=== PATIENT | male | born 1950 | race Caucasian/White ===

== ENCOUNTER → 2018-07-10 12:54 | Outpatient (BNVA) | payer MEDICARE, BC, SELFPAY | PROVIDERS: PCP Internal Medicine; Visit Provider Nurse Practitioner Gerontology | DX: N40.1 Benign prostatic hyperplasia with lower urinary tract symptoms (principal); R33.9 Retention of urine, unspecified | CPT/HCPCS: 51798; 81003; 99204 ==

== ENCOUNTER → 2018-07-31 08:27 | Outpatient (BNVA) | payer MEDICARE, BC, SELFPAY | PROVIDERS: PCP Internal Medicine; Visit Provider Nurse Practitioner Gerontology | DX: R35.0 Frequency of micturition (principal) | CPT/HCPCS: 51798; 99213 ==

== ENCOUNTER → 2019-07-28 08:32 | Outpatient (BNVA) | payer MEDICARE, BC, SELFPAY | PROVIDERS: PCP Internal Medicine; Visit Provider Nurse Practitioner Gerontology | DX: N40.1 Benign prostatic hyperplasia with lower urinary tract symptoms (principal); R35.1 Nocturia | CPT/HCPCS: 99214 ==

== ENCOUNTER 2019-07-31 02:27 | Outpatient (CLI) | payer MEDICARE, BC, SELFPAY ==
[2019-08-03 10:53] LABS: PSA, Screening 0.4 ng/mL (0.0-6.5)
== END 2019-07-31 02:47 ==
PROVIDERS: PCP Internal Medicine; Visit Provider Nurse Practitioner Gerontology
DX: R33.9 Retention of urine, unspecified (principal); R35.1 Nocturia; N40.1 Benign prostatic hyperplasia with lower urinary tract symptoms; Z12.5 Encounter for screening for malignant neoplasm of prostate
CPT/HCPCS: 36415; 84153

== ENCOUNTER → 2019-08-04 11:58 | Outpatient (BNVA) | payer MEDICARE, BC, SELFPAY | PROVIDERS: PCP Internal Medicine; Referring Provider Internal Medicine; Visit Provider Nurse Practitioner Gerontology | DX: N40.1 Benign prostatic hyperplasia with lower urinary tract symptoms (principal); R35.1 Nocturia | CPT/HCPCS: 99213 ==

== ENCOUNTER → 2019-11-02 09:56 | Outpatient (BNVA) | payer MEDICARE, BC, SELFPAY | PROVIDERS: PCP Internal Medicine; Referring Provider Internal Medicine; Visit Provider Nurse Practitioner Gerontology | DX: N40.1 Benign prostatic hyperplasia with lower urinary tract symptoms (principal); R35.1 Nocturia | CPT/HCPCS: 99213 ==

== ENCOUNTER → 2020-01-27 08:52 | Outpatient (BNVA) | payer MEDICARE, BC, SELFPAY | PROVIDERS: PCP Internal Medicine; Visit Provider Nurse Practitioner Gerontology | DX: R69 Illness, unspecified (principal) ==

== ENCOUNTER 2020-01-27 13:17 | Outpatient (CLI) | payer MEDICARE, BC, SELFPAY ==
--- NOTE | 2020-01-27 10:15 | DI.US_ITS ---
EXAM: US RENAL CLINICAL HISTORY: retention of urine, R33.9. TECHNIQUE: Trent scale, color and spectral Doppler were used. COMPARISON: No exams were available for comparison FINDINGS: Renal size in cm: Right: 10.7. Left: 11.4. Echogenicity: Normal. Hydronephrosis: No. Cyst or mass: No. Nephrolithiasis: No. Other findings: None. Bladder:Mild bladder wall trabeculation. Ureteral jets: Right: Visualized and unremarkable. Left: Visualized and unremarkable. Prevoid vol:358 cc Postvoid vol:320 cc Prostate: 60 cc. Prostate gland appears enlarged and impinges upon the base of the urinary bladder. Renal color flow: Symmetric and within normal limits. IMPRESSION: 1. Enlarged prostate gland impinging upon the base of the urinary bladder. 2. Large postvoid urinary bladder residual. Mild bladder wall trabeculation. This may be due to chr onic bladder outlet obstruction. DATA REPOSITORY:
== END 2020-01-27 13:37 ==
PROVIDERS: PCP Internal Medicine; Visit Provider Nurse Practitioner Gerontology
DX: N40.1 Benign prostatic hyperplasia with lower urinary tract symptoms (principal); R33.8 Other retention of urine; R35.1 Nocturia
CPT/HCPCS: 76770; 99213

== ENCOUNTER → 2020-02-17 09:25 | Outpatient (BNVA) | payer MEDICARE, BC, SELFPAY | PROVIDERS: PCP Internal Medicine; Referring Provider Internal Medicine; Visit Provider Nurse Practitioner Gerontology | DX: N40.1 Benign prostatic hyperplasia with lower urinary tract symptoms (principal); R35.1 Nocturia; R33.8 Other retention of urine | CPT/HCPCS: 99213 ==

== ENCOUNTER → 2020-03-14 10:27 | Outpatient (BNVA) | payer MEDICARE, BC, SELFPAY | PROVIDERS: PCP Internal Medicine; Referring Provider Internal Medicine; Visit Provider Nurse Practitioner Gerontology | DX: R33.8 Other retention of urine (principal); F41.1 Generalized anxiety disorder | CPT/HCPCS: 99212; 99442 ==

== ENCOUNTER 2020-03-17 11:01 | Outpatient (CLI) | payer MEDICARE, BC, SELFPAY ==
[2020-03-19 13:55] LABS: COVID-19 RT-PCR UVMMC Result Negative (Negative)
== END 2020-03-17 11:21 ==
PROVIDERS: Nurse Practitioner Gerontology; PCP Internal Medicine; Visit Provider Urology
DX: Z11.59 Encounter for screening for other viral diseases (principal); Z01.818 Encounter for other preprocedural examination
CPT/HCPCS: U0003

== ENCOUNTER 2020-03-21 10:18 | Inpatient (IN) | payer MEDICARE, BC, SELFPAY ==
[2020-03-21] VITALS (17 sets, daily range): BP systolic 85–132; BP diastolic 53–80; PULSE 43–59; RESP 8–20; TEMP 35.4–37; O2SAT 97–100
--- NOTE | 2020-03-21 07:05 | W.PM.HP.N ---
Assessment and Plan Assessment and plan (1) Lower urinary tract symptoms (LUTS): Status: Chronic Assessment and plan: We will move forward with cystoscopy and TURP (2) Retention of urine: Status: Acute History of Present Illness History of Present Illness Chief Complaint: BPH with LUTS Narrative: Omid is a 69-year-old male that is being seen in the urology clinic due to bladder outlet obstruction. He has been treated for BPH with his LUTS and is currently on max therapy of tamsulosin 0.8 mg daily and Proscar 5 mg daily. He was last seen a few weeks ago and was determined to have a elevated PVR even with max therapy. He notes that his symptoms were not utterly bothersome, but his PVR was over 300 cc. No hydronephrosis was noted on the renal ultrasound. After discussing multiple treatment options, he has decided to move forward with a TURP. Review of Systems Narrative: No fevers or chills No vision change or dysphasia No diabetes or thyroid No shortness of breath, cough or hemoptysis No chest pain or palpitations No nausea, vomiting, hepatitis, ulcers, jaundice, diarrhea or constipation No seizures, strokes or peripheral neuropathy No bleeding disorders or anemia No gout PFSH Surgical History Varicocele Ligation Family History Mother Essential hypertension Social History (Updated 07/29/18 @ 08:49 by Mel Bryant LPN) Smoking/Tobacco Use Status: Former Tobacco Use Smoking risk assessment performed?: Yes Alcohol Intake: current Alcohol Intake frequency: 0-2 drinks per day Drug use: Never Household members: spouse Housing: house Number of Children: 1 number of grandchildren: 2 Education Level: other Details: Retired Retail Brand Ambassador, Clamp Forklift Operator Do you need help understanding health information?: Never Current gender identity: male What is your relationship status?: Panel score (0-1 are the most socially isolated patients): 1 What type of physical activity do you participate in: regular exercise Duration: 15-30 minutes/day Frequency: 3-4 times per week Seatbelt use: always Drive intox or ride w/intox tower truck driver: No Working smoke detector in home: Yes Fire extinguisher in home: Yes Carbon monox detector in home: Yes Do you feel safe at home: Yes Do you feel safe in your relationship?: Yes Meds Home Medications and Allergies Home Medications Medication Instructions Recorded Confirmed Type tamsulosin 0.4 mg capsule 0.8 mg PO DAILY #180 cap 04/23/19 03/21/20 Rx finasteride 5 mg tablet 5 mg PO DAILY #90 tab 08/04/19 03/21/20 Rx Allergies Allergy/AdvReac Type Severity Reaction Status Date / Time Penicillins Allergy Unknown Verified 03/21/20 06:48 Sulfa (Sulfonamide Allergy Unknown Verified 03/21/20 06:48 Antibiotics) Exam Const General: cooperative, comfortable, no acute distress and well developed Neck Neck: supple Resp Effort & Inspection: normal respiratory effort Auscultation: clear to auscultation bilaterally Cardio Rate: regular rate Rhythm: regular rhythm GI Palpation: soft and no masses Neuro General: patient alert, patient awake and patient oriented x3 Results Last Vital Signs Temp 36.5 C 03/21/20 06:39 Pulse 57 L 03/21/20 06:39 Resp 18 03/21/20 06:39 BP 122/80 03/21/20 06:39 Pulse Ox 97 03/21/20 06:39 COVID-19 Screening Have you, or household traveled for leisure in last 14 days?: No Had IN PERSON contact w/suspected or confirmed C-19 person: No
[2020-03-21] MEDS: Lactated Ringers 1,000 ML 80 ML IV ×3 (07:09→22:42)
[2020-03-21] MEDS: CIPROFLOXACIN 400 MG/200 ML BAG 200 MG IVPB (08:21)
[2020-03-21] MEDS: Lidocaine 2% Jelly 6 ML SYR (09:12)
--- NOTE | 2020-03-21 10:10 | PROST_PTH ---
PATIENT: Omdi Roy LOC: U#:[id number] AGE/SX: 69/M ROOM: 210 RE03/21/[address]: Manpreet Chapa MD : [id number] BED: A DIS: 03/22/2020 SPEC #: [id number] RECD: 03/21/20 12:45 STATUS: MANOJ REQ #: [id number] SARAH: 03/21/20 10:[address]: Manpreet Chapa DEPT: Surgical Specimen RECD BY: Shakira Magallanes ENTERED: 03/21/20 12:46 SP TYPE: PROST OTHR DR: Becca Wild MD Tissues: 1 - PROSTATE CURRETTINGS Procedures: GROSS AND MICRO LEVEL 4 Comments: [id number]
--- NOTE | 2020-03-21 10:56 | ROE_ITS ---
Date of service: 03/21/20 Time of Service: 10:56 Operative Note Operative Note DATE OF PROCEDURE: 03/21/20 PRE-OP DIAGNOSIS: BPH with LUTS POST-OP DIAGNOSIS: same PROCEDURE: Cystoscopy, TURP SURGEON: Manpreet Chapa ANESTHESIA: spinal ESTIMATED BLOOD LOSS: 200 PATHOLOGY: other (prostate chips) COMPLICATIONS: None Patient was transported to: PACU Patient's condition: stable Implants: 24 Frisian Hematuria catheter with 30 cc of sterile water in balloon Indications: This is a 69-year-old gentleman who has a history of lower urinary tract symptoms. He has failed maximal medical therapy and presents for transurethral resection of prostate Findings: Diffusely enlarged prostate Trabeculated bladder Procedure Description: The patient was brought to the operating room on 03/21/2020. After successful induction of spinal anesthesia, he was positioned in the dorsal lithotomy position. He was given a dose of preoperative IV antibiotics. 2% Xylocaine jelly was instilled into the urethra to act as a local anesthetic. A 24 Frisian resectoscope sheath was passed through the urethra into the bladder. Urethra and bladder were inspected with the 30 degree lens and visual obturator. The pendulous, bulbous and membranous urethra all appeared normal with no strictures. The prostatic urethra showed lateral lobe enlargement but no significant median lobe. Bladder neck was entered and the bladder mucosa was inspected. Both ureteral orifices appeared normal with no blood seen coming from either side. The bladder was moderately trabeculated with a few small diverticuli and cellules present. No papillary or nodular tumors were seen. We then used the [employer] resectoscope to perform transurethral resection of the prostate from the bladder neck out to the verumontanum. We used bipolar cautery and resected down to the level of the prostatic capsule. We then switched over to the plasma button and vaporized the prostate tissue the remainder of the way. All resected tissue was evacuated and sent to pathology for permanent section. Once hemostasis had been obtained, the bladder was filled with irrigant and the resectoscope was removed. We then passed a 24 Frisian hematuria catheter through the urethra into the bladder. The catheter balloon was inflated with 30 cc of sterile water. Continuous bladder irrigation with saline was begun. Traction was placed on the catheter until the irrigant became clear. A belladonna and opium suppository was inserted into the patient's rectum. He was transferred to the recovery room in stable condition.
[2020-03-21] MEDS: Normal Saline Flush 10 ML SYR IV (11:55)
[2020-03-21] MEDS: MacroBID 100 MG CAP PO (19:46)
[2020-03-21] MEDS: Docusate Sodium 100 MG CAP PO (19:46)
[2020-03-22 06:58] LABS: HCT 39.2 % (40.0-50.0); MCH 31.6 pg (27.0-33.0); MCHC 33.2 % (32.0-36.0); MCV 95.4 fL (80-95); MPV 10.5 fL (8.0-11.0); Platelet Count 168 10^3/uL (130-400); RBC 4.11 10^6/uL (4.36-5.78); RDW-SD 45.6 fL; WBC 8.11 10^3/uL (4.4-10.8)
[2020-03-22 07:03] LABS: Anion Gap 2.3 mmol/L (3-11); BUN 12 mg/dL (7-18); CO2 30.7 mmol/L (21.0-32.0); CREATININE 1.01 mg/dL (0.70-1.30); Calcium 8.4 mg/dL (8.5-10.1); Chloride 105 mmol/L (98-107); Glucose 93 mg/dL (74-106); Potassium 4.5 mmol/L (3.5-5.1); Sodium 138 mmol/L (136-145)
[2020-03-22 07:21] VITALS: BP 109/57; PULSE 49; RESP 19; TEMP 36.7; O2SAT 97
--- NOTE | 2020-03-22 07:25 | W.PM.PROGNOT ---
Date of Service Date of service: 03/22/20 Time of Service: 07:25 Assessment and Plan Assessment and plan (1) Retention of urine: Status: Acute Assessment and plan: We will discontinue both the IV fluid and the continuous bladder irrigation. Once we see his lab work from this morning and see how he does without the bladder irrigation, we will make a decision regarding discharge later this morning. Subjective Subjective Interval history since last seen: He has had some spasms, but no clot retention. He is tolerating oral nutrition. He has no fevers or chills. Exam Narrative Exam Narrative: He does not appear septic or toxic His vital signs are documented elsewhere His urine is clear with continuous bladder irrigation His labs are pending from this morning Objective Last Vital Signs Temp 36.7 C 03/22/20 07:21 Pulse 49 L 03/22/20 07:21 Resp 19 03/22/20 07:21 BP 109/57 L 03/22/20 07:21 Pulse Ox 97 03/22/20 07:21 Laboratory Results - last 24 hr 03/22/20 03/22/20 06:36 06:36 WBC 8.11 RBC 4.11 L Hgb 13.0 L Hct 39.2 L MCV 95.4 H MCH 31.6 MCHC 33.2 RDW 13.0 Plt Count 168 MPV 10.5 Sodium 138 Potassium 4.5 Chloride 105 Carbon Dioxide 30.7 Anion Gap 2.3 L BUN 12 Creatinine 1.01 Estimated GFR/1.73 m2 >= 60.00 Glucose 93 Calcium 8.4 L
--- NOTE | 2020-03-22 08:25 | INITIAL_ITS ---
- If Service Date Differs Date of service: 03/22/20 Time of Service: 08:25 Care Management Initial Assess REASON FOR HOSPITALIZATION:: BPH PAST MEDICAL HISTORY/PAST SURGICAL HISTORY:: Past medical History: none documented. Surgical History . Varicocele Ligation PREVIOUS FUNCTIONAL STATUS/SOCIAL/FAMILY SUPPORTS:: Omid lives in [place] with his Mary. CURRENT FUNCTIONAL STATUS:: Omid was walking out the door to be discharged when CM came to see him. he stated that he was doing well and did not need any services at home. ADVANCE DIRECTIVES:: none on file CODE STATUS:: Full Code INSURANCE COVERAGE / FINANCIAL ISSUES:: Medicare. BC BS CURRENT HOME/COMMUNITY SERVICES/EQUIPMENT:: none PRIMARY CARE PHYSICIAN:: Becca Wild POTENTIAL DISCHARGE NEEDS:: Followup with PCP and surgeon and plan of care PATIENT/FAMILY EDUCATION NEEDS:: Discharge plan, limitationbs, follow up plan, medications, Ask Me Three PLAN:: Omid will be discharged home with no new services and follow up with Dr. Chapa and his prescribed plan of care.
[2020-03-22] MEDS: Ketorolac 15 MG/ML VIAL IVP (08:32)
[2020-03-22] MEDS: Normal Saline Flush 10 ML SYR IV (08:33)
[2020-03-22] MEDS: Finasteride 5 MG TAB PO (08:34)
[2020-03-22] MEDS: Docusate Sodium 100 MG CAP PO (08:34)
[2020-03-22] MEDS: Tamsulosin 0.4 MG CAPCR 0.8 MG PO (08:34)
[2020-03-22] MEDS: MacroBID 100 MG CAP PO (08:34)
--- NOTE | 2020-03-22 08:54 | W.PM.DS.N ---
Date of service: 03/22/20 Time of Service: 08:55 DS: Diagnosis Discharge Diagnosis (1) Retention of urine: Status: Acute Discharge Plan Disposition Patient Disposition: HOME Condition: Stable Discharge Details Reason For Visit: BPH WITH LUTS Admit Date/Time: 03/21/20 10:18 Admit Provider: Manpreet Chapa Attending Provider: Manpreet Chapa Primary Care Provider: Becca Wild Hospital Course Hospital Course: The patient was admitted and taken to the operating room on 03/21/2020 where he underwent transurethral resection of the prostate. The surgery itself was uneventful. Postoperatively, he was brought up to the medical surgical unit and maintained on continuous bladder irrigation overnight. By postoperative day #1, his irrigation was clear. He was tolerating oral nutrition and medications. His lab work was stable. He was deemed to be ready for discharge. Home Meds and New Rx's Prescriptions: New ketorolac 10 mg tablet 10 mg PO TID PRN (Reason: pain) 5 Days Qty: 15 RF: 0 nitrofurantoin monohyd/m-cryst [Macrobid] 100 mg capsule 100 mg PO Q12H 3 Days Qty: 6 RF: 0 No Action finasteride [Proscar] 5 mg tablet 5 mg PO DAILY Qty: 90 RF: 3 tamsulosin [Flomax] 0.4 mg capsule 0.8 mg PO DAILY Qty: 180 RF: 3 Discharge Instructions Additional Instructions: Continue both the finasteride and tamsulosin until your next follow-up visit Follow-up with nurse in 2 to 3 days for catheter removal In the meantime, the catheter to leg bag during the day and a larger drainage bag at night May plug catheter to take shower No lifting over 10 pounds or exercising until follow-up visit Follow-up visit with me in 1 to 2 weeks Activity:: No lifting over 10 pounds Equipment/Supplies:: Pavon to drainage Diet:: As Tolerated Discharge Orders Discharge Orders: Discharge Order (Routine); Ordered 03/22/20 Ordered By: Manpreet Chapa DS: Summary Status at Discharge Functional status at discharge: independent ambulation Overall status at discharge: patient is back to baseline Mental Status: mental status grossly normal Speech and Movement: speech and movement normal Mood: congruent mood Affect: normal affect Exam Psych Mental Status: mental status grossly normal Speech and Movement: speech and movement normal Mood: congruent mood Affect: normal affect DS: Data Vitals/I&O Vitals and I&O: Vital Signs Temperature 36.7 C 03/22/20 07:21 Temperature Source Tympanic 03/22/20 07:21 Pulse 49 L 03/22/20 07:21 Pulse Rhythm Regular 03/22/20 04:20 Respiratory Rate 19 03/22/20 07:21 Respiratory Effort Non-Labored 03/22/20 04:20 Respiratory Depth Normal 03/22/20 04:20 Respiratory Pattern Normal 03/22/20 04:20 Blood Pressure 109/57 L 03/22/20 07:21 Pulse Oximetry 97 03/22/20 07:21 Oxygen Delivery Method Room Air 03/22/20 07:21 Oxygen Flow Rate 0 03/22/20 07:21 Pain Level 2 03/22/20 08:32 Intake & Output 03/21/20 03/21/20 03/22/20 11:59 23:59 11:59 Intake Total 686.000 / 2430.000 1744.000 / 2430.000 Balance 686.000 / 2430.000 1744.000 / 2430.000 Weight 74.8 kg Intake: IV 686.000 / 1570.000 884.000 / 1570.000 Oral 860 / 860 Other: Urine Color Leith Pale Pale Urine Appearance Hematuria Clear Hematuria Comment On CBI, clear pale output at this time, draining well On CBI, clear pale output at this time, draining well Emesis Description None Data Completed and Pending Labs on day of discharge: Labs from last 24 hours 03/22/20 03/22/20 06:36 06:36 WBC 8.11 RBC 4.11 L Hgb 13.0 L Hct 39.2 L MCV 95.4 H MCH 31.6 MCHC 33.2 RDW 13.0 Plt Count 168 MPV 10.5 Sodium 138 Potassium 4.5 Chloride 105 Carbon Dioxide 30.7 Anion Gap 2.3 L BUN 12 Creatinine 1.01 Estimated GFR/1.73 m2 >= 60.00 Glucose 93 Calcium 8.4 L PFSH Surgical History Varicocele Ligation Family History Mother Essential hypertension Social History (Updated 07/29/18 @ 08:49 by Mel RAYGOZA Smoking/Tobacco Use Status: Former Tobacco Use Smoking risk assessment performed?: Yes Alcohol Intake: current Alcohol Intake frequency: 0-2 drinks per day Drug use: Never Household members: spouse Housing: house Number of Children: 1 number of grandchildren: 2 Education Level: other Details: Retired Senior Executive Assistant, Research And Development Technician Do you need help understanding health information?: Never Current gender identity: male What is your relationship status?: Panel score (0-1 are the most socially isolated patients): 1 What type of physical activity do you participate in: regular exercise Duration: 15-30 minutes/day Frequency: 3-4 times per week Seatbelt use: always Drive intox or ride w/intox emergency detail driver: No Working smoke detector in home: Yes Fire extinguisher in home: Yes Carbon monox detector in home: Yes Do you feel safe at home: Yes Do you feel safe in your relationship?: Yes
== END 2020-03-22 12:06 | disposition home or self-care (01) | DRG 713 ==
LOC: MS 11:26
PROVIDERS: Admitting Provider Urology; PCP Internal Medicine; Visit Provider Urology
PROC: 0VT08ZZ Resection of Prostate, Via Natural or Artificial Opening Endoscopic (ICD-10-PCS; CPT 52601; principal; 2020-03-21 09:15)
DX: N40.1 Benign prostatic hyperplasia with lower urinary tract symptoms (principal); N13.8 Other obstructive and reflux uropathy; R33.8 Other retention of urine
CPT/HCPCS: 52601; 36415; 80048; 85027; 88305; NC; J0744; J1580; J1885; J2250; J2405

== ENCOUNTER → 2020-03-24 08:23 | Outpatient (BNVA) | payer MEDICARE, BC, SELFPAY | PROVIDERS: PCP Internal Medicine; Referring Provider Internal Medicine; Visit Provider Nurse Practitioner Gerontology | DX: Z48.816 Encounter for surgical aftercare following surgery on the genitourinary system (principal); R33.9 Retention of urine, unspecified ==

== ENCOUNTER → 2020-04-05 10:56 | Outpatient (BNVA) | payer MEDICARE, BC, SELFPAY | PROVIDERS: PCP Internal Medicine; Referring Provider Internal Medicine; Visit Provider Urology | DX: Z48.816 Encounter for surgical aftercare following surgery on the genitourinary system (principal); R33.9 Retention of urine, unspecified; N40.1 Benign prostatic hyperplasia with lower urinary tract symptoms; R35.1 Nocturia ==

== ENCOUNTER → 2020-05-03 13:52 | Outpatient (BNVA) | payer MEDICARE, BC, SELFPAY | PROVIDERS: PCP Internal Medicine; Referring Provider Internal Medicine; Visit Provider Urology | DX: N40.1 Benign prostatic hyperplasia with lower urinary tract symptoms (principal); R35.1 Nocturia; Z98.890 Other specified postprocedural states ==

== ENCOUNTER 2023-10-28 03:42 | Outpatient (CLI) | payer MEDICARE, BC, SELFPAY ==
[2023-10-28 08:53] LABS: Anion Gap 5.8 mmol/L (3-11); BUN 18 mg/dL (7-18); CO2 30.2 mmol/L (21.0-32.0); Calcium 8.5 mg/dL (8.5-10.1); Calculated LDL 120 mg/dL (<100); Chloride 103 mmol/L (98-107); Cholesterol 208 mg/dL (<200); Estimated GFR 78.98 (mL/min/1.73m2); Glucose 88 mg/dL (74-106); HDL Cholesterol 77 mg/dL (40-60); Potassium 4.3 mmol/L (3.5-5.1); Sodium 139 mmol/L (136-145); Triglyceride 55 mg/dL (<150)
== END 2023-10-28 03:43 | disposition home or self-care (01) ==
PROVIDERS: PCP Family Medicine; Visit Provider Family Medicine
DX: E78.5 Hyperlipidemia, unspecified (principal)
CPT/HCPCS: 36415; 80048; 80061

== ENCOUNTER 2024-06-26 00:18 | Outpatient (CLI) | payer MEDICARE, BC, SELFPAY ==
--- NOTE | 2024-06-26 07:45 | DI.RAD_ITS ---
Exam(s) XR HIP RT COMPLETE AP PELVIS EXAM: XR HIP RT COMPLETE AP PELVIS CLINICAL HISTORY: right hip pain, RT LEG NUMBNESS, LUMBAR BACK PAIN RADICULOPATHY. TECHNIQUE: 2D digital imaging was performed. Two views COMPARISON: No exams were available for comparison FINDINGS: BONES: No acute fracture is present. No bony destructive lesion is seen. JOINTS: No dislocation present. The hip joint spaces are maintained. There is mild bilateral aceta bular spurring. SOFT TISSUE: Normal calcifications in the pelvis some which likely represent phleboliths. There two seen more centrally located calcifications which could represent bladder calcifications. IMPRESSION: Mild degenerative changes of both hips. Question of bladder calculi. Ultrasound could be considered for further evaluation. DATA REPOSITORY: RADIATION DOSE DELIVERED:
== END 2024-06-26 00:38 ==
LOC: DI 00:18
PROVIDERS: PCP Family Medicine; Visit Provider Nurse Practitioner
DX: M16.0 Bilateral primary osteoarthritis of hip (principal); R20.0 Anesthesia of skin; M54.16 Radiculopathy, lumbar region; R93.41 Abnormal radiologic findings on diagnostic imaging of renal pelvis, ureter, or bladder
CPT/HCPCS: 73502

== ENCOUNTER 2024-06-29 13:00 | Outpatient (CLI) | payer MEDICARE, BC, SELFPAY ==
--- NOTE | 2024-06-29 13:00 | DI.RAD_ITS ---
Exam(s) XR LUMBAR SPINE COMPLETE EXAM: XR LUMBAR SPINE COMPLETE CLINICAL HISTORY: Back pain, M54.9-dorsalgia, right sciatica, leg weakness-R29.898-other sign. TECHNIQUE: 2D digital imaging was performed. Five views. COMPARISON: No exams were available for comparison FINDINGS: BONES: No fracture or destructive lesion. Vertebral body heights are maintained. There are small e ndplate osteophytes at multiple levels. Or prominent osteophytes are noted at L4. Mild facet hypert rophy identified at L4-5 and L5-S1.. DISKS: Intervertebral disc spaces are maintained. ALIGNMENT: Lumbar spinal alignment is within normal limits. SOFT TISSUE: Normal. IMPRESSION: Mild degenerative changes of the lumbar spine. DATA REPOSITORY: RADIATION DOSE DELIVERED:
== END 2024-06-29 13:20 ==
LOC: DI 13:05
PROVIDERS: PCP Family Medicine; Visit Provider Nurse Practitioner
DX: M54.9 Dorsalgia, unspecified (principal); R29.898 Other symptoms and signs involving the musculoskeletal system
CPT/HCPCS: 72110

== ENCOUNTER 2024-07-09 16:48 | Outpatient (REF) | payer MEDICARE, BC, SELFPAY ==
[2024-07-09 11:48] LABS: Bilirubin Negative (Negative); Blood Negative (Negative); Clarity Clear (Clear); Glucose Negative (Negative); Ketones Negative (Negative); Leukocyte Esterase Negative (Negative); Nitrite Negative (Negative); Specific Gravity 1.015 (1.005-1.025); Urobilinogen 0.2 mg/dL (Up to 0.2)
== END 2024-07-09 16:49 | disposition home or self-care (01) ==
LOC: LBN 16:48
PROVIDERS: PCP Family Medicine; Visit Provider Nurse Practitioner Family
DX: N21.0 Calculus in bladder (principal)
CPT/HCPCS: 81003

== ENCOUNTER 2024-07-10 00:12 | Outpatient (CLI) | payer MEDICARE, BC, SELFPAY ==
--- NOTE | 2024-07-10 09:35 | DI.MRI_ITS ---
Exam(s) MR LUMBAR SPINE WO EXAM: MR LUMBAR SPINE WO CLINICAL HISTORY: right leg radiculopathy,rt hip pain,rt leg numbness,lumbar back pain,m54.16. TECHNIQUE: Multiplanar multisequence MRI of the Lumbar spine was performed. COMPARISON: CR XR LUMBAR SPINE COMPLETE from 06/29/2024 FINDINGS: Conus medullaris is at normal level. There is no evidence of conus mass nor subjacent clumping of in trathecal nerve roots to suggest arachnoiditis. The distal thecal sac appears unremarkable.There is no evidence of Tarlov intrasacral cysts nor other significant findings within the sacral canal Bones:There are no fractures nor ominous osseous lesions in the lumbar vertebral bodies and visualize d sacrum. Schmorl's node invagination noted in the inferior endplate of L4 without significant surro unding bone edema. With respect to the individual disc space levels... T12-L1: Unremarkable L1-2: Normal disc height and signal. No disc herniation nor central canal stenosis.No foraminal steno sis L2-3: Normal disc height. No disc herniation nor central canal stenosis.No foraminal stenosis.No face t arthropathy. L3-4: Preserved disc height. Posteriorly there is central subligamentous annular bulging which symme trically indents the anterior aspect of the thecal sac. Central canal dimensions are lower normal th is age group. Annular bulging does extend mildly into the exiting neural foramina but there does not appear to be significant foraminal stenosis on either side at this level. Facet joints appear unrem arkable. L4-5: This level exhibits normal disc height. Schmorl's node invagination in the inferior endplate o f L4 noted without significant surrounding bone edema. Posteriorly there is abnormal signal in the p osterior annulus and relatively symmetrical annular bulging which extends also into the floor both e xiting neural foramina. There is mild central spinal canal stenosis at this level. There is also mi ld foraminal stenosis bilaterally, slightly more so on the right side there are moderate degenerative changes in both facet joints. L5-S1: This level exhibits relatively preserved disc height although with some mildly asymmetric narr owing on the right side of the disc space. There are no Modic type sub endplate marrow changes. The re is symmetrical annular bulging at this level. Central canal dimensions are lower normal but there is foraminal stenosis on the right side related to mildly asymmetric disc height loss on the right s faisal at this level, with the exiting right nerve root compressed between the overlying right L5 pedicl e and subjacent annular bulging. There are mild degenerative changes in the facet joints bilaterally at this level. There is only minimal if any significant foraminal stenosis on the opposite-left sobia e at this level. Soft tissues: paraspinal soft tissues appear unremarkable. IMPRESSION: 1. Findings at L3-4, L4-5, and L5-S1 levels as described above. 2. There is mild central canal stenosis at the L4-5 level as well as mild bilateral foraminal stenosi s at this level, slightly more so on the right side. 3. At the L5-S1 level central canal dimensions are lower normal but there is significant foraminal st enosis on the right side at this level as described above. DATA REPOSITORY:
== END 2024-07-10 00:32 ==
LOC: DI 00:13
PROVIDERS: PCP Family Medicine; Visit Provider Nurse Practitioner
DX: M48.061 Spinal stenosis, lumbar region without neurogenic claudication (principal); R20.0 Anesthesia of skin; M54.16 Radiculopathy, lumbar region; R29.898 Other symptoms and signs involving the musculoskeletal system
CPT/HCPCS: 72148